=== PATIENT | female | born 1965 | race Caucasian/White ===

== ENCOUNTER 2019-12-10 19:43 | Emergency (ER) | payer BC, OTHER ==
--- NOTE | 2019-12-10 19:51 | ED ---
Respiratory - HPI Summary HPI Summary: Patient complains of dry cough x weeks, with shortness of breath, headache, body aches, sore throat, 1 week. Patient states she had fever for about 3 days 1 week ago. No fever since. Patient sent to the ED by PCP for evaluation for progressive sensation of SOB.. History of asthma. Patient states use of inhaler providing no relief. Denies neck stiffness, ear pain, CP, N/V/D, abdominal pain, change in urine, change in BM. Medical history is asthma, HTN. - History of Current Complaint Stated Complaint: FEVER/COUGH/SOB PER PT Time Seen by Provider: 12/10/19 19:46 Hx Obtained From: Patient Onset/Duration: Gradual Onset, Lasting Days Initial Severity: Moderate Current Severity: Moderate Character: Cough (Nonproductive), Dyspnea at Rest Sputum Amount: None Aggravating Factor(s): Nothing Alleviating Factor(s): Nothing Associated Signs and Symptoms: SOB - Allergy/Home Medications Allergies/Adverse Reactions: Allergies Allergy/AdvReac Type Severity Reaction Status Date / Time hydrocodone Allergy Rash And Verified 12/10/19 19:59 Itching Home Medications: Home Medications Lisinopril/HCTZ 06/30.5(NF) [Zestoretic 06/30.5(NF)] 1 tab PO DAILY 09/11/14 [ History Confirmed 12/10/19] Citalopram TAB* [CeleXA TAB*] 20 mg PO DAILY 08/29/17 [History Confirmed ] diPHENhydraMINE PO* [Benadryl PO 25 MG TAB*] 25 mg PO Q6H PRN 04/02/19 [History Confirmed 12/10/19] Albuterol inh POWDER (NF) [Proair Respiclick] 2 puff INH Q4HR PRN 12/10/19 [ History Confirmed 12/10/19] Fluticasone NASAL SPRAY 50MCG* [Flonase NASAL SPRAY 50MCG*] 2 spray BOTH NARES DAILY 12/10/19 [History Confirmed 12/10/19] PMH/Surg Hx/FS Hx/Imm Hx Endocrine/Hematology History: Denies: Hx Anticoagulant Therapy, Hx Diabetes, Hx Thyroid Disease Cardiovascular History: Reports: Hx Hypertension Denies: Hx Congestive Heart Failure, Hx Deep Vein Thrombosis, Hx Myocardial Infarction, Hx Pacemaker/ICD Respiratory History: Reports: Hx Asthma Denies: Hx Chronic Obstructive Pulmonary Disease (COPD), Hx Lung Cancer, Hx Pneumonia, Hx Pulmonary Embolism GI History: Denies: Hx Gall Bladder Disease, Hx Gastrointestinal Bleed, Hx Ulcer, Hx Urosepsis History: Denies: Hx Kidney Stones, Hx Renal Disease Sensory History: Denies: Hx Eye Prosthesis Opthamlomology History: Denies: Hx Legally Blind EENT History: Denies: Hx Deafness Neurological History: Denies: Hx Dementia, Hx Migraine, Hx Seizures, Hx Transient Ischemic Attacks (TIA) Psychiatric History: Denies: Hx Anxiety, Hx Depression, Hx Schizophrenia, Hx Bipolar Disorder - Surgical History Surgery Procedure, Year, and Place: ectopic 1984. right foot bunion reconstruction 2000. tubal ligation. partial hysterectomy Infectious Disease History: Denies: Hx Clostridium Difficile, Hx Hepatitis, Hx Human Immunodeficiency Virus (HIV), Hx of Known/Suspected MRSA, Hx Shingles, Hx Tuberculosis - Family History Known Family History: Positive: Hypertension, Other - peripheral artery disease Negative: Cardiac Disease - Social History Alcohol Use: Occasionally Hx Substance Use: No Substance Use Type: Reports: None Hx Tobacco Use: Yes Smoking Status (MU): Light Every Day Tobacco Smoker Type: Cigarettes Amount Used/How Often: 4-5 cig/day Have You Smoked in the Last Year: No Review of Systems Constitutional: Negative Eyes: Negative Positive: Sore Throat Cardiovascular: Negative Positive: Shortness Of Breath, Cough Gastrointestinal: Negative Genitourinary: Negative Musculoskeletal: Negative Skin: Negative Positive: Headache Psychological: Normal All Other Systems Reviewed And Are Negative: Yes Physical Exam Triage Information Reviewed: Yes Vital Signs Reviewed: Yes Appearance: Positive: Well-Appearing Skin: Positive: Warm Head/Face: Positive: Normal Head/Face Inspection Eyes: Positive: Normal ENT: Positive: Pharyngeal erythema, TMs normal, Uvula midline. Negative: Tonsillar swelling, Tonsillar exudate, Trismus, Muffled voice, Hoarse voice Neck: Positive: Supple Respiratory/Lung Sounds: Positive: Clear to Auscultation Cardiovascular: Positive: Normal Abdomen Description: Positive: Nontender Musculoskeletal: Positive: Normal Neurological: Positive: Normal Psychiatric: Positive: Normal AVPU Assessment: Alert - [place] Coma Scale Best Eye Response: 4 - Spontaneous Best Motor Response: 6 - Obeys Commands Best Verbal Response: 5 - Oriented Coma Scale Total: 15 Procedures - Sedation Patient Received Moderate/Deep Sedation with Procedure: No Disposition - Course Course Of Treatment: Patient complains of dry cough x weeks, with shortness of breath, headache, body aches, sore throat, 1 week. Patient states she had fever for about 3 days 1 week ago. No fever since. Patient sent to the ED by PCP for evaluation for progressive sensation of SOB.. History of asthma. Patient states use of inhaler providing no relief. Denies neck stiffness, ear pain, CP, N/V/D, abdominal pain, change in urine, change in BM. Medical history is asthma, HTN. Vital signs are normal limits. Chest x-ray unremarkable. Flu negative. Patient vital signs stable. Patient has an inhaler at home. Will discharge with self quarantine instructions. - Diagnoses Provider Diagnoses: Respiratory infection Discharge ED - Sign-Out/Discharge Documenting (check all that apply): Patient Departure - Discharge Plan Condition: Stable Disposition: HOME Patient Education Materials: Upper Respiratory Infection (ED), Shortness of Breath (ED) Forms: COVID-19 Tested & Isolation Referrals: Fortunato Solitario MD [Primary Care Provider] - Additional Instructions: Please follow self quarantine instructions. Return to the ED for any worsening symptoms. - Billing Disposition and Condition Condition: STABLE Disposition: Home - Attestation Statements Provider Attestation: 54 Female seen by the mid-level provider and presented to me after the patient had already started his workup. Patient's chief complaint was shortness of breath and the patient was being worked up for suspected pneumonia versus other respiratory illness/infection. At time of presentation to me the patient was reporting worsening shortness of breath and thus my request to be involved in the case. On my evaluation patient was tachypneic and tachycardic as well as diaphoretic on my exam the patient's was exhibiting rhonchi and wheezing throughout her bilateral upper lung bean however the right lung seemed to be significantly worse than the left lung. She did seem to have adequate air entry but wheezing and rhonchi were again obvious at present. 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 For this reason for rotavirus testing was initiated and in the meanwhile antibiotics were started with broad-spectrum to cover community acquired pneumonia. She also does have a dental cellulitis/lymphangitis of her right upper extremity with having lymph node resection in that same extremity after the mastectomy. Patient seems to be improving with the 4 L of oxygen by mask, she is a mouth breather, as well as IV fluids also improving her tachycardia. I did discuss the fact that the patient seems to be relatively unwell and that she might benefit from critical care. This was discussed with the on-call hospitalist who will evaluate the patient this time and decide where he best sees the patient fitted for admission but has except to his service for further workup and management of an acute respiratory infection etiology not yet peripherally defined at this point.
[2019-12-10 20:35] LABS: Influenza A Molecular Negative (Negative); Influenza B Molecular Negative (Negative)
[2019-12-10] MEDS ORDERED: Acetaminophen TAB* 325 MG PO ONE (21:32)
[2019-12-10 21:54] VITALS: BP 113/88
== END 2019-12-10 21:59 | disposition home or self-care (01) ==
LOC: ED 19:43
DX: J98.8 Other specified respiratory disorders (principal); I10 Essential (primary) hypertension; J45.909 Unspecified asthma, uncomplicated; F17.210 Nicotine dependence, cigarettes, uncomplicated; Z98.51 Tubal ligation status; Z90.711 Acquired absence of uterus with remaining cervical stump; Z79.899 Other long term (current) drug therapy; Z88.5 Allergy status to narcotic agent
CPT/HCPCS: 71045; 99282; A9270-GY; U0002